=== PATIENT | male | born 1965 | race Caucasian/White ===

== ENCOUNTER 2019-11-25 12:36 | Outpatient (CLI) | payer BC, SELFPAY ==
--- NOTE | 2019-11-25 13:01 | XR_ITS ---
WS: [id number] Right shoulder, 3 views, 11/25/2019 Clinical Data: ROTATOR CUFF SYNDROME, RIGHT SHOULDER PAIN Comparison: None. Findings: No fractures or dislocations are seen. The AC joint is normal. The adjacent right clavicle, right sca pula and ribs are normal. The soft tissues are unremarkable. XR/XR shoulder RT min 2V* [id number] Impression: Negative right shoulder.
== END 2019-11-25 12:37 | disposition home or self-care (01) ==
LOC: RADWPI 12:41
PROVIDERS: Family Provider Electrodiagnostic Medicine; PCP Electrodiagnostic Medicine; Visit Provider Electrodiagnostic Medicine
DX: M75.101 Unspecified rotator cuff tear or rupture of right shoulder, not specified as traumatic (principal); M25.519 Pain in unspecified shoulder
CPT/HCPCS: 73030

== ENCOUNTER 2019-12-01 12:56 | Outpatient (CLI) | payer BC, SELFPAY ==
--- NOTE | 2019-12-01 | XR_ITS ---
WS: [id number] Orbits 2 view. HISTORY: Evaluate for foreign body prior to MRI. COMPARISON: None. No metallic foreign bodies are noted over the orbits or globes. No air-fluid levels in the visualized sinuses or bone destruction. XR/[place] [id number] IMPRESSION: No foreign body over the orbits or globes.
--- NOTE | 2019-12-01 13:13 | MR_ITS ---
WS: [id number] MRI RIGHT SHOULDER HISTORY: RIGHT ADHESIVE Capsulitis; rt ROTATOR CUFF SYNDROME/PAIN COMPARISON: 03/06/2015 TECHNIQUE: Multiplanar sequences of the shoulder joint are submitted. Micrometallic artifacts are noted surrounding the humeral head from prior surgery. Marked arthritis involving the AC joint. Osteophyte and soft tissue encroachment upon the supraspinat us muscle and tendon. Small amount of fluid in the subacromial and subdeltoid bursa. There is a small amount of fluid in the axillary pouch and surrounding the humeral head and extending along the bicep s tendon sheath. Marked thickening and abnormal signal in the subscapularis tendon. Suspicious for at least a partial tear in the subscapularis tendon distal to the coracohumeral interval. There is moderate narrowing of the coracohumeral interval with distortion of the subscapularis tendon. There is marked thickening o f the distal subscapularis tendon. There is additional increased T2 signal at the insertion site of t he supraspinatus tendon. No retraction of the tendon. Intrasubstance degeneration in the anterior superior labrum. No definite tear is identified. There is increase fluid along the biceps tendon sheath and increased signal in the biceps tendon sheath. Part ial tear of the biceps tendon. MR/MR shoulder RT wo con* [id number] IMPRESSION: 1. Significant progression of degenerative changes at the glenohumeral joint a nd AC joint since 03/06/2015. 2. Marked AC joint arthritis with encroachment upon the supraspinatus tendon a nd muscle. 3. Abnormal signal in the distal subscapularis tendon. High-grade tear suspect ed distal to the coracohumeral interval. Marked narrowing of the coracohumeral interval ligament with impingement. 4. Partial split tear in the biceps tendon along with tenosynovitis. 5. Fraying along the articular surfaces of the supraspinatus and infraspinatus tendons. No definite tear is identified.
== END 2019-12-01 12:57 | disposition home or self-care (01) ==
LOC: RADSHAW 13:00
PROVIDERS: Family Provider Electrodiagnostic Medicine; PCP Electrodiagnostic Medicine; Visit Provider Electrodiagnostic Medicine
DX: Z01.818 Encounter for other preprocedural examination (principal); S46.911A Strain of unspecified muscle, fascia and tendon at shoulder and upper arm level, right arm, initial encounter; X58.XXXA Exposure to other specified factors, initial encounter
CPT/HCPCS: 70030; 73221

== ENCOUNTER 2022-04-11 11:30 | Emergency (ER) | payer OTHER, SELFPAY ==
[2022-04-11 11:46] VITALS: BP 162/110; PULSE 75; RESP 16; TEMP 37.1; O2SAT 97
--- NOTE | 2022-04-11 12:00 | W.ED.EXTPRO ---
HPI - Extremity Problem General: Chief complaint: Extremity Problem,Nontraumatic Stated complaint: swelling to R wrist Time Seen by Provider: 04/11/22 11:53 History of Present Illness: Patient is a 56-year-old male who comes to the ED with swallowing mass on right wrist. Patient noticed approximately 2 to 3 weeks ago. The mass has continued to get larger. Denies any injury or trauma to cause swelling mass in right wrist. The mass is nontender does not cause him any pain or discomfort. He still has full range of motion in right wrist. Denies any chest pain, shortness of breath, fevers, chills, nausea/vomiting, abdominal pain, bladder or bowel symptoms. Associated symptoms: Deny chest pain, fever(s) or rash Review of Systems Const: Denies: fever(s), chills or fatigue Eyes: Denies: change in vision or eye discomfort ENMT: Denies: throat pain, odynophagia, nasal discharge or nasal congestion Card: Denies: chest pain, palpitations, edema, swelling of feet/ankles, dyspnea on exertion or orthopnea Resp: Denies: dyspnea, productive cough or non-productive cough GI: Denies: abdominal pain, nausea, vomiting, diarrhea, constipation or hematochezia : Denies: flank pain, difficulty urinating, dysuria or hematuria Musc: Reports: other (Localized swelling mass on right wrist.); Denies: neck pain, back pain or extremity swelling Skin/Breast: Denies: rash or new lesions Neuro: Denies: headache(s), numbness in extremities or weakness in extremities [facility] ED PFSH: Medical History No pertinent family history Surgical History No pertinent past surgical history Physical Exam Const: COMMON NORMALS: no acute distress, patient oriented x3, healthy appearing and alert GENERAL APPEARANCE: cooperative and comfortable HENMT: COMMON NORMALS: normocephalic HEAD & SCALP: normocephalic MOUTH: Normal oral and palatal mucosa present THROAT: posterior oropharynx normal and uvula midline Neck/C-Spine: COMMON NORMALS: supple GENERAL: Yes normal visual inspection Resp: COMMON NORMALS: normal respiratory effort, No retractions, No use of accessory muscles and clear to auscultation bilaterally AUSCULTATION: clear to auscultation bilaterally Cardio: COMMON NORMALS: regular rate, regular rhythm, S1 normal heart sound present, S2 normal heart sound present, No gallops present (Cardio), No clicks present (Cardio), No murmurs present (Cardio) and Peripheral pulses 2+ throughout RATE: regular rate RHYTHM: regular rhythm HEART SOUNDS: S1 normal heart sound present and S2 normal heart sound present PERIPHERAL PULSES: Peripheral pulses 2+ throughout GI: COMMON NORMALS: Normal to inspection, nondistended, normoactive bowel sounds present, Soft to palpation, non-tender and no masses PALPATION: Yes Soft to palpation : COMMON NORMALS: Yes no CVA tenderness BLADDER/KIDNEY EXAM: Yes no CVA tenderness Back/Pelvis: COMMON NORMALS: no CVA tenderness Extremity: NARRATIVE EXTREMITY EXAM: Right wrist?patient has palpable firm nodule on the volar aspect of wrist. Nontender to palpation and approximately 1.5 cm in diameter. No erythema or warmth noted. Neuro: COMMON NORMALS: patient oriented x3 and moves all extremities SENSORIUM/ORIENTATION: Yes alert Skin: GENERAL SKIN EXAM: dry skin Course Vital Signs: Vital signs: Vital Signs Temperature 98.8 F 04/11/22 11:46 Pulse Rate 75 04/11/22 11:46 Respiratory Rate 16 04/11/22 11:46 Blood Pressure 162/110 04/11/22 11:46 Pulse Oximetry 97 04/11/22 11:46 MDM - Extremity (Nontraumatic) Medical Decision Making Patient is a 56-year-old male who comes to the ED with swallowing mass on right wrist. Patient noticed approximately 2 to 3 weeks ago. The mass has continued to get larger. Denies any injury or trauma to cause swelling mass in right wrist. The mass is nontender does not cause him any pain or discomfort. He still has full range of motion in right wrist. Patient's PCP sent him here to the ED to get an ultrasound done. Right wrist?patient has palpable firm nodule on the volar aspect of wrist. Nontender to palpation and approximately 1.5 cm in diameter. No erythema or warmth noted. Vitals are stable. Ultrasound venous duplex of right upper extremity showed no blood clots or DVTs. Soft tissue ultrasound of right arm showed a large likely ganglion cyst on the lateral right wrist. I placed an order with case management for patient to be referred to Ortho for follow-up of the large ganglion cyst. He was stable for discharge home. Return ED precautions given. Patient understood agree with plan. Lab Data Radiology Impressions Soft Tissue Ultrasound 04/11/22 12:02 IMPRESSION: Large cystic mass along the lateral RIGHT wrist. Favor this is probably a ganglion. Evaluation by orthopedics recommended. Discharge Plan Discharge Patient Disposition: Home Clinical Impression: Ganglion cyst of volar aspect of right wrist Condition: Stable Discharge Orders: Discharge ED (Routine); Ordered 04/11/22 Ordered By: Naman Aponte Referrals: Darin Guzman, [Primary Care Provider] - Discharge Diet: Regular Discharge Activity: Resume usual activity Patient Instructions: Ganglion Cyst (ED) Activity Restrictions/Additional Instructions: Follow-up with medical provider as directed. Case management should be contacting you in the next several days set up an appoint with Ortho for follow-up. Return to the ER or your medical provider if condition worsens. Please read and understand discharge instructions. Thank you for choosing [facility] for your healthcare needs today. Please realize this is an emergency room and that we are providing you with a medical screening exam and this may not be complete and all inclusive of all the testing and or work up that you may need to determine your ailment or severity of your illness. It is very important that you follow up as instructed or that you return to the Emergency Department should you have concerns or if your condition changes or worsens in any way. Coding Level of Care Code ED [employer] for Flo Patel Exam Comprehensive
--- NOTE | 2022-04-11 12:02 | USCV_ITS ---
Jose Reyes Age: 56 Gender: M : 1965 Exam Date: 04/11/2022 12:18 Ordering Phys: Naman Aponte Technologist: ILAN Exam Location: [facility] [place]_ Indication: RUE SWELLING HISTORY: Upper extremity swelling. PROCEDURES: Venous duplex imaging was performed in only the Right upper extremity. The following venous structures were evaluated: internal jugular vein, subclavian vein, axillary vein, and brachial veins. In addition, the basilic vein, cephalic vein, radial vein, and ulnar vein. Serial compression, augmentation maneuvers, and spectral Doppler flow evaluation were performed. FINDINGS: The right upper extremity was evaluated with duplex Doppler ultrasound for this exam. No evidence of deep vein thrombosis or superficial thrombophlebitis in the right upper extremity. The veins of the right upper extremity are readily compressible with normal venous flow dynamics including spontaneous flow, respiratory phasic variation and augmentation. CONCLUSIONS No evidence of thrombus of the right upper extremity veins. Mohsen Islas MD (Electronically Signed) Final Date: 11 April 2022 17:11 S
--- NOTE | 2022-04-11 12:02 | US_ITS ---
WS: [id number] ULTRASOUND SOFT TISSUES RIGHT wrist. HISTORY: swelling mass on right wrist COMPARISON: None available. TECHNIQUE: 2-D and color Doppler imaging is submitted. Mildly complex cystic mass along the lateral RIGHT wrist extending to the base of the thumb. This mas s measures 3.7 cm in length x 1.8 x 1.0 cm. This is closely associated with the radial artery. There is no increased vascularity within this cystic mass. US/US soft tissue/extremity [id number] IMPRESSION: Large cystic mass along the lateral RIGHT wrist. Favor this is probably a gangl ion. Evaluation by orthopedics recommended.
--- NOTE | 2022-04-11 13:57 | PC.SOCIAL ---
Addendum entered by Hui Mnasfield 05/03/22 16:42: Patient had a follow up appointment scheduled for 04.15.22 with Ramón Reis at ortho - patient did attend appointment. Original Note: Ortho Referral Message sent to ortho requesting follow up appointment; office to contact patient with appointment date and time.
== END 2022-04-11 13:34 | disposition home or self-care (01) ==
PROVIDERS: Emergency Provider Physician Assistant; PCP Electrodiagnostic Medicine
DX: M67.431 Ganglion, right wrist (principal)
CPT/HCPCS: 76882; 93971; 99283

== ENCOUNTER → 2022-04-15 09:32 | Outpatient (BNVA) | payer OTHER, SELFPAY | PROVIDERS: PCP Electrodiagnostic Medicine; Referring Provider Physician Assistant; Visit Provider Nurse Practitioner Family | DX: M67.431 Ganglion, right wrist (principal) | CPT/HCPCS: 73110 ==

== ENCOUNTER 2022-04-25 06:32 | Day surgery (SDC) | payer OTHER, SELFPAY ==
[2022-04-24 12:38] VITALS: BMI 28.7
[2022-04-25] VITALS (13 sets, daily range): BP systolic 136–162; BP diastolic 95–110; PULSE 74–102; RESP 12–21; TEMP 36.2–36.5; O2SAT 91–98
--- NOTE | 2022-04-25 07:05 | W.PM.OPSUD ---
Surgery/Procedure H&P Update DATE OF PROCEDURE: April 25, 2022 DATE H&P PERFORMED: 04/15/22 H&P UPDATE INFORMATION: I have reviewed H&P completed within last 30 days PREOP DIAGNOSIS: Ganglion right wrist PLANNED PROCEDURE: Operation Date: 04/25/22 08:00 Proposed Procedures p mass excision right wrist/ [id number],M67.431(Right) - Fernando Flood MD
[2022-04-25] MEDS: sodium chloride 0.9% 1,000 ML 30 ML IV (07:20)
--- NOTE | 2022-04-25 07:25 | ANES.PREANE2 ---
Pre-Anesthetic Assessment Height/Weight: Height 1.83 m Weight 96.162 kg Temp Pulse Resp BP Pulse Ox 97.7 F 74 18 153/101 98 04/25/22 06:42 04/25/22 06:42 04/25/22 06:42 04/25/22 06:42 04/25/22 06:42 Preop Diagnosis: Ganglion right wrist Operation Date: 04/25/22 08:00 Proposed Procedures p mass excision right wrist/ [id number],M67.431(Right) - Fernando Flood MD Familial anesthetic complications: none Was Beta Shantelle taken within 24 hours: N/A Was Clonidine taken within 24 hours: N/A Last intake: Intake Last Liquid Date 04/24/22 Last Liquid Time 21:30 Last Solid Date 04/24/22 Last Solid Time 21:30 Social Alcohol (Daily beer) and No tobacco Exam alert, oriented x 3, clear to auscultation bilaterally and regular rate & rhythm Airway Submandibular: within normal limits Cervical ROM: within normal limits Mallampati: Class II Dentition: full Comments: Comments: [place] History/ROS No significant history except as noted Anesthetic Plan ASA status: 2 Anesthesia: Choice Medications/Allergies Home Medications Medication Instructions Recorded Confirmed Last Taken Type hydrocodone 5 mg-acetaminophen 325 1 tab PO Q4H #15 tab 04/25/22 Unknown Rx mg tablet Allergies Allergy/AdvReac Type Severity Reaction Status Date / Time No Known Allergies Allergy Verified 04/15/22 09:41 Current Medications Generic Name Dose Route Start Last Admin Trade Name Freq PRN Reason Stop Dose Admin Sodium Chloride 1,000 mls @ 30 mls/hr 04/25/22 06:45 04/25/22 07:20 Sodium Chloride 0.9% IV 04/26/22 06:44 30 mls/hr .Q24H JOSELITO Administration PFSH Anesthesia Medical History No pertinent family history Surgical History No pertinent past surgical history Social History Smoking and tobacco status: former smoker Data Anesthesia Cardiac Studies: No Data to Display
--- NOTE | 2022-04-25 07:42 | P.OP_ITS ---
Operative Report Date of procedure: April 25, 2022 Pre-op diagnosis: Preop Diagnosis Ganglion right wrist Post-op diagnosis: same Procedure done: Excision ganglion right wrist Pathology: none sent Surgeon: Fernando Flood Anesthesia: General Estimated blood loss (mL): 20 Tourniquet time (min): 16 Findings: The patient had a ganglion cyst measuring approximately 1.5 x 2 cm over the volar radial wrist. It was adherent to the radial artery and deep capsule Condition: stable Disposition: PACU Procedure: The patient was taken to the operating room and given a general anesthesia. He was prepped and draped in the supine position with his right wrist exposed. A longitudinal incision was made over the palpable mass over the volar radial wrist. Dissection was carried down through the skin and subcutaneous tissue until the ganglion cyst was identified. Utilizing a hemostat and blunt scissors dissection was accomplished medially and laterally. At the proximal extent of the ganglion the radial artery was seen entering and entwined in the volar radial aspect of the mass. The artery was dissected free moved from distal to proximal and the remaining ulnar aspect of the ganglion freed from the capsule. Hemostasis provided with bipolar cautery. Deep tissues were closed with 3-0 Vicryl. The skin was closed with 3-0 Prolene. Sterile compressive dressings were applied. The patient was extubated taken to recovery room in stable condit ion.
[2022-04-25] MEDS: ceFAZolin 2,000 MG in sodium chloride 0.9% (plus) 50 ML 100 MG IV (08:00)
[2022-04-25] MEDS: fentaNYL 50 mcg/mL INJ 2mL IVP (09:19)
[2022-04-25] MEDS: HYDROcodone-acetaminophen 5-325 mg Tablet 1 TAB PO (10:06)
--- NOTE | 2022-04-25 16:36 | ANE.PACU2 ---
Inpatient post-anesthesia follow up: Airway intact: Yes Vital signs: Temperature 97.5 F Pulse Rate 83 Respiratory Rate 18 Blood Pressure 152/110 Pulse Oximetry 97 Oxygen Delivery Me thod Room Air Oxygen Flow Rate Fraction of Inspir ed Oxygen Hydration adequate: Yes Nausea and vomiting: No Pain level: 1 Mental status: Baseline
== END 2022-04-25 10:10 | disposition home or self-care (01) ==
PROVIDERS: PCP Electrodiagnostic Medicine; Visit Provider Orthopaedic Surgery
PROC: (CPT 25111; principal; 2022-04-25 07:50)
DX: M67.431 Ganglion, right wrist (principal); Z87.891 Personal history of nicotine dependence
CPT/HCPCS: 25111; J1100; J2405; J2704; J3010; J3490; J7030

== ENCOUNTER → 2023-01-02 09:16 | Outpatient (BNVA) | payer OTHER, SELFPAY | PROVIDERS: PCP Electrodiagnostic Medicine; Referring Provider Electrodiagnostic Medicine; Visit Provider Student in an Organized Health Care Education/Training Program | DX: M70.61 Trochanteric bursitis, right hip (principal); M70.62 Trochanteric bursitis, left hip | CPT/HCPCS: 73523 ==

== ENCOUNTER 2024-05-09 13:15 | Emergency (ER) | payer OTHER, SELFPAY ==
[2024-05-09 13:17] VITALS: BP 200/122; PULSE 71; TEMP 36.5; O2SAT 96; BMI 30.4
--- NOTE | 2024-05-09 13:20 | CTR_ITS ---
PROCEDURE INFORMATION: Exam: CT Chest Without Contrast; Diagnostic Exam date and time: 05/09/2024 1:40 PM Age: 58 years old Clinical indication: Injury or trauma; Fall; Blunt trauma (contusions or hematomas); Additional info: Traumatic chest pain TECHNIQUE: Imaging protocol: Diagnostic computed tomography of the chest without contrast. Radiation optimization: All CT scans at this facility use at least one of these dose optimization techniques: automated exposure control; mA and/or kV adjustment per patient size (includes targeted exams where dose is matched to clinical indication); or iterative reconstruction. COMPARISON: CR XR chest 1V [id number] 02/13/2018 11:13 PM RADIATION DOSE METRICS: Total DLP (mGy-cm): 510.7 FINDINGS: Thyroid: Punctate calcified left thyroid nodule not reaching size criteria for follow-up. Lungs: Posterior atelectasis versus scarring. Left lower lobe granuloma. Lingular scarring/atelectasis. Pleural spaces: Unremarkable. No pneumothorax. No pleural effusion. Heart: Unremarkable. No cardiomegaly. No pericardial effusion. Lymph nodes: Unremarkable. No enlarged lymph nodes. Vasculature: Single focus of calcified atherosclerotic disease of the distal right subclavian artery. Bones/joints: Lateral fracture of the left 4th rib, minimal displacement. Soft tissues: Unremarkable. CT/CT chest wo con [id number] IMPRESSION: 1. Minimally displaced lateral left 4th rib fracture. 2. No further acute finding. 3. Additional findings as above. COMMENTS: Consistent with the [employer]'s Incidental Findings Committee white paper (J Am Patti Radiol 2015): In patients aged 35 years and older with an incidental thyroid nodule equal to or greater than 1.[address], MRI or extrathyroidal US, further evaluation with dedicated thyroid US is recommended for patients with normal life expectancy and without comorbidities. For smaller nodules without suspicious features, no further evaluation or follow up is recommended.
--- NOTE | 2024-05-09 13:20 | CTR_ITS ---
PROCEDURE INFORMATION: Exam: CT Cervical Spine Without Contrast Exam date and time: 05/09/2024 1:36 PM Age: 58 years old Clinical indication: Injury or trauma; Fall; Blunt trauma; Additional info: Fall, neck pain TECHNIQUE: Imaging protocol: Computed tomography of the cervical spine without contrast. Radiation optimization: All CT scans at this facility use at least one of these dose optimization techniques: automated exposure control; mA and/or kV adjustment per patient size (includes targeted exams where dose is matched to clinical indication); or iterative reconstruction. COMPARISON: CR XR cervical spine 3V* [id number] 03/11/2018 2:51 PM RADIATION DOSE METRICS: Total DLP (mGy-cm): 397 FINDINGS: Bones: Degenerative change of the visualized osseous structures. Ankylosis across the C2-C3 bilateral facet joints. No severe spinal canal stenosis. No severe foraminal stenosis. Lungs: Lung apices are normal. Thyroid: Calcified left thyroid nodule not reaching size criteria for follow-up. Vasculature: Scattered atherosclerotic disease, mild. Soft tissues: Unremarkable. CT/CT cervical spin wo con* [id number] IMPRESSION: 1. No acute findings. 2. Additional findings as above. COMMENTS: Consistent with the [employer]'s Incidental Findings Committee white paper (J Am Patti Radiol 2015): In patients aged 35 years and older with an incidental thyroid nodule equal to or greater than 1.[address], MRI or extrathyroidal US, further evaluation with dedicated thyroid US is recommended for patients with normal life expectancy and without comorbidities. For smaller nodules without suspicious features, no further evaluation or follow up is recommended.
--- NOTE | 2024-05-09 13:21 | CTR_ITS ---
PROCEDURE INFORMATION: Exam: CT Thoracic Spine Without Contrast Exam date and time: 05/09/2024 1:40 PM Age: 58 years old Clinical indication: Injury or trauma; Fall; Blunt trauma (contusions or hematomas); Additional info: Traumatic upper back pain TECHNIQUE: Imaging protocol: Computed tomography of the thoracic spine without contrast. Radiation optimization: All CT scans at this facility use at least one of these dose optimization techniques: automated exposure control; mA and/or kV adjustment per patient size (includes targeted exams where dose is matched to clinical indication); or iterative reconstruction. COMPARISON: CT chest wo con [id number] 05/09/2024 1:40 PM RADIATION DOSE METRICS: Total DLP (mGy-cm): 1020.3 FINDINGS: Bones/joints: Scattered degenerative change. No significant spinal canal narrowing. No significant foraminal narrowing. Soft tissues: Unremarkable. Vasculature: Calcified atherosclerotic disease. Lungs: Left lower lobe granuloma. Scattered atelectasis/scarring. CT/CT thoracic spin wo con* [id number] IMPRESSION: 1. No acute findings. 2. Additional findings as above. 3. Please refer to the concurrently performed CT of the chest for intrathoracic findings and impression.
--- NOTE | 2024-05-09 13:46 | ED_ITS ---
HPI - Back Pain/Injury General: Chief Complaint: Back Pain/Injury Stated Complaint: BACK PAIN S/P FALL Time Seen by Provider: 05/09/24 13:16 History of Present Illness: 58-year-old man who presents emergency r oom by ambulance with neck and back pain. He says he fell out of a window about 4 feet 2 days ago. Said initially he did not think much of it but today went to move and he felt a pop in his neck and since then he says he cannot move his neck at all. Also having pain in his mid thoracic back. No saddle numbness, no urinary retention or incontinence, no focal motor deficit, no sensory deficit. no recent fever. no cough. no shortness of breath. no chest pain. no abdominal pain. no nausea or vomiting. no dysuria. no altered mental status. no edema. Review of Systems Narrative: Constitutional symptoms: Negative except as documented in HPI. Skin symptoms: Negative except as documented in HPI. Eye symptoms: Negative except as documented in HPI. ENMT symptoms: Negative except as documented in HPI. Respiratory symptoms: Negative except as documented in HPI. Cardiovascular symptoms: Negative except as documented in HPI. Gastrointestinal symptoms: Negative except as documented in HPI. Genitourinary symptoms: Negative except as documented in HPI. Musculoskeletal symptoms: Negative except as documented in HPI. Neurologic symptoms: Negative except as documented in HPI. Psychiatric symptoms: Negative except as documented in HPI. Endocrine symptoms: Negative except as documented in HPI. [facility] ED PFSH: Medical History No pertinent family history Surgical History No pertinent past surgical history Social History Smoking and tobacco/nicotine status: former use of tobacco/nicotine Physical Exam Narrative: EXAM NARRATIVE: General: Alert, no acute distress. Skin: Warm, dry. Head: Normocephalic, atraumatic. Neck: Supple, trachea midline. Eye: Extraocular movements are intact. Ears, nose, mouth and throat: mucosa moist. Cardiovascular: Regular, Normal peripheral perfusion. Respiratory: Lungs are clear to auscultation, respirations are non-labored, breath sounds are equal, Symmetrical chest wall expansion. Gastrointestinal: Soft, Nontender, Non distended Musculoskeletal: Normal ROM, no deformity. Neurological: Alert and oriented, No focal neurological deficit observed. Psychiatric: Cooperative, appropriate mood & affect. Course Vital Signs: Vital signs: Vital Signs Temperature 97.7 F 05/09/24 13:17 Pulse Rate 71 05/09/24 13:17 Blood Pressure 200/122 05/09/24 13:17 Pulse Oximetry 96 05/09/24 13:17 Oxygen Delivery Me thod Room Air 05/09/24 13:17 MDM - Back Pain/Injury Medical Decision Making In this patient with left rib pain and neck pain after a trauma CT of the cervical spine, thoracic spine and chest were ordered. Rule out fractures, pneumothorax, pulmonary contusions etc. CT of the cervical spine: No fracture. Good alignment. No step-offs. This was reviewed and interpreted by myself the emergency room physician. I also reviewed the radiologist report. CT of the thoracic spine: No fracture. Good alignment. No step-offs. This was reviewed and interpreted by myself the emergency room physician. CT of the chest without contrast: There is a left fourth nondisplaced rib fracture. No pneumothorax. No pulmonary contusions. No pneumonia. This was reviewed and interpreted by myself the emergency room physician. I also reviewed the radiology report. Reexamination: Patient still with some neck stiffness and limited range of motion of his neck. No focal motor deficits. No weakness in his extremities. No loss of bowel or bladder continence. No altered mental status. No increased work of breathing. Assessment and plan: Rib fracture Cervical sprain ? Incentive spirometry with greater than 1000 cc inhaled prior to discharge. We discussed incentive spirometry and his risk for pneumonia if he does not have deep breaths regularly. ? Healy, IV Toradol and IV Decadron. P.o. Flexeril - Discharged home - Discussed plan with patient. Answered any questions. - Evaluation and treatment of this problem were appropriate in the emergency setting. Labs Radiology Impressions Cervical Spine CT 05/09/24 13:20 IMPRESSION: 1. No acute findings. 2. Additional findings as above. COMMENTS: Consistent with the [employer]'s Incidental Findings Committee white paper (J Am Patti Radiol 2015): In patients aged 35 years and older with an incidental thyroid nodule equal to or greater than 1.[address], MRI or extrathyroidal US, further evaluation with dedicated thyroid US is recommended for patients with normal life expectancy and without comorbidities. For smaller nodules without suspicious features, no further evaluation or follow up is recommended. Chest CT 05/09/24 13:20 IMPRESSION: 1. Minimally displaced lateral left 4th rib fracture. 2. No further acute finding. 3. Additional findings as above. COMMENTS: Consistent with the [employer]'s Incidental Findings Committee white paper (J Am Patti Radiol 2015): In patients aged 35 years and older with an incidental thyroid nodule equal to or greater than 1.[address], MRI or extrathyroidal US, further evaluation with dedicated thyroid US is recommended for patients with normal life expectancy and without comorbidities. For smaller nodules without suspicious features, no further evaluation or follow up is recommended. Thoracic Spine CT 05/09/24 13:21 IMPRESSION: 1. No acute findings. 2. Additional findings as above. 3. Please refer to the concurrently performed CT of the chest for intrathoracic findings and impression. All radiology interpretation(s) finalized by discharge Discharge Plan Discharge Patient Disposition: Home Clinical Impression: Fractured rib, Cervical strain Condition: Stable Prescriptions: New cyclobenzaprine 10 mg tablet 10 mg PO Q8H Qty: 20 0RF hydrocodone-acetaminophen 5-325 mg tablet 1 tab PO Q6H PRN (Reason: pain) Qty: 20 0RF dexamethasone 6 mg tablet 6 mg PO DAILY 5 Days Qty: 5 0RF diclofenac sodium 50 mg tablet,delayed release (DR/EC) 50 mg PO Q12H Qty: 20 0RF Miralax 17 gram/dose powder 17 g PO DAILY Qty: 510 0RF Rx Instructions: Take 1 scoop daily while taking pain medications. No Action meloxicam 7.5 mg tablet 7.5 mg PO DAILY Discharge Orders: Discharge ED (Routine); Ordered 05/09/24 Ordered By: Elisa Saleh Referrals: Darin Guzman DO [Primary Care Provider] - Discharge Diet: Usual diet Discharge Activity: Increase activity as tolerated Patient Instructions: Cervical Strain (ED), Rib Fracture (ED) Activity Restrictions/Additional Instructions: Thank you for choosing [facility] for your healthcare needs today. Please realize this is an emergency room and that we are providing you with a medical screening exam and this may not be complete and all inclusive of all the testing and or work up that you may need to determine your ailment or severity of your illness. You have been screened and evaluated and felt safe for discharge. Health conditions do change or evolve sometimes and as such it is important that you follow up with your Primary Doctor to be re checked, 3-5 days is a general good time frame for follow up. You are always welcome to return to the ED for re assessment if your symptoms are worsening or you have new concerns Coding Level of Care Code ED Engine Emission Technician for Flo Patel
[2024-05-09] MEDS: cyclobenzaprine 10 mg Tablet PO (14:20)
[2024-05-09] MEDS: dexamethasone 10 mg/mL INJ IVP (14:20)
[2024-05-09] MEDS: ketorolac 30 mg/mL INJ IVP (14:21)
[2024-05-09] MEDS: HYDROcodone-acetaminophen 10-325 mg Tablet 1 TAB PO (15:23)
== END 2024-05-09 15:55 | disposition home or self-care (01) ==
PROVIDERS: Emergency Provider Emergency Medicine; PCP Electrodiagnostic Medicine
DX: S16.1XXA Strain of muscle, fascia and tendon at neck level, initial encounter (principal); S22.32XA Fracture of one rib, left side, initial encounter for closed fracture; Z87.891 Personal history of nicotine dependence; W13.4XXA Fall from, out of or through window, initial encounter
CPT/HCPCS: 71250; 72125; 72128; 96374; 96375; 99285; J1100; J1885

== ENCOUNTER 2024-06-29 17:28 | Emergency (ER) | payer OTHER, SELFPAY ==
[2024-06-29] VITALS (7 sets, daily range): BP systolic 131–184; BP diastolic 83–115; PULSE 72–82; RESP 18; O2SAT 91–97; BMI 29.8
--- NOTE | 2024-06-29 17:40 | CTR_ITS ---
PROCEDURE INFORMATION: Exam: CT Cervical Spine Without Contrast Exam date and time: 06/29/2024 6:26 PM Age: 59 years old Clinical indication: Injury or trauma; Fall; Other: Pain; Additional info: Fall/pain TECHNIQUE: Imaging protocol: Computed tomography of the cervical spine without contrast. Radiation optimization: All CT scans at this facility use at least one of these dose optimization techniques: automated exposure control; mA and/or kV adjustment per patient size (includes targeted exams where dose is matched to clinical indication); or iterative reconstruction. COMPARISON: CT cervical spin wo con* [id number] 05/09/2024 1:36 PM RADIATION DOSE METRICS: Total DLP (mGy-cm): 1001 FINDINGS: Bones/joints: Chronic deformity of the C2 vertebral body with ankylosis of C2-C3, which may be developmental and/or sequela of remote trauma. There is degeneration of the atlantoaxial articulation, [id number]. No evidence of acute fracture or subluxation of the cervical spine. The craniocervical junction including the atlantoaxial and atlantooccipital articulations are otherwise intact. C2-C3: Mild bilateral foraminal stenosis. No central stenosis. C3-C4: Mild left-sided foraminal stenosis. No central stenosis. C4-C5: Mild left-sided foraminal stenosis. No central stenosis. C5-C6: Uncovertebral hypertrophy and facet arthrosis results in severe left-sided and mild right-sided foraminal stenosis. No central stenosis. C6-C7: Uncovertebral hypertrophy and facet arthrosis results in moderate-severe left-sided foraminal stenosis. Mild central stenosis. C7-T1: No central or foraminal stenosis. Lungs: The visualized lung apices are clear. Soft tissues: No gross soft tissue abnormality. No significant prevertebral edema. No evidence of fluid collection or hematoma. CT/CT cervical spin wo con* [id number] IMPRESSION: 1. No evidence of fracture or subluxation of the cervical spine.
--- NOTE | 2024-06-29 17:40 | CTR_ITS ---
PROCEDURE INFORMATION: Exam: CT Head Without Contrast Exam date and time: 06/29/2024 6:26 PM Age: 59 years old Clinical indication: Injury or trauma; Fall; Other: Pain; Additional info: Fall/pain TECHNIQUE: Imaging protocol: Computed tomography of the head without contrast. Radiation optimization: All CT scans at this facility use at least one of these dose optimization techniques: automated exposure control; mA and/or kV adjustment per patient size (includes targeted exams where dose is matched to clinical indication); or iterative reconstruction. COMPARISON: CT head wo con* [id number] 02/13/2018 11:55 PM RADIATION DOSE METRICS: Total DLP (mGy-cm): 1321 FINDINGS: Brain: No evidence of intra-axial or extra-axial hemorrhage. No mass effect or midline shift. Martin-white differentiation is maintained. Basilar cisterns are patent. Cerebral ventricles: No hydrocephalus. Paranasal sinuses: The visualized paranasal sinuses are well aerated. Mastoid air cells: Small bilateral mastoid effusions. Bones: Calvarium is intact. No evidence of acute fracture. Soft tissues: Age-indeterminate depression in the right frontal scalp. Otherwise no gross soft tissue abnormality. CT/CT head wo con* [id number] IMPRESSION: 1. No acute intracranial abnormality.
--- NOTE | 2024-06-29 17:40 | CTR_ITS ---
PROCEDURE INFORMATION: Exam: CT Thoracic Spine Without Contrast Exam date and time: 06/29/2024 6:30 PM Age: 59 years old Clinical indication: Injury or trauma; Fall; Other: Pain; Additional info: Fall/pain TECHNIQUE: Imaging protocol: Computed tomography of the thoracic spine without contrast. Radiation optimization: All CT scans at this facility use at least one of these dose optimization techniques: automated exposure control; mA and/or kV adjustment per patient size (includes targeted exams where dose is matched to clinical indication); or iterative reconstruction. COMPARISON: CT thoracic spin wo con* [id number] 05/09/2024 1:40 PM RADIATION DOSE METRICS: Total DLP (mGy-cm): 1225 FINDINGS: Bones/joints: No evidence of fracture or subluxation. No evidence of thecal sac stenosis. No evidence of aggressive osseous lesion. Soft tissues: Paraspinal soft tissues are unremarkable. Lungs: Subsegmental dependent atelectasis in both lungs. CT/CT thoracic spin wo con* [id number] IMPRESSION: 1. No evidence of fracture or subluxation of the thoracic spine.
--- NOTE | 2024-06-29 17:40 | CTR_ITS ---
PROCEDURE INFORMATION: Exam: CT Lumbar Spine Without Contrast Exam date and time: 06/29/2024 6:36 PM Age: 59 years old Clinical indication: Injury or trauma; Fall; Blunt trauma (contusions or hematomas); Prior surgery; Surgery date: 6+ months; Surgery type: L. Spine; Additional info: Fall/pain TECHNIQUE: Imaging protocol: Computed tomography of the lumbar spine without contrast. Radiation optimization: All CT scans at this facility use at least one of these dose optimization techniques: automated exposure control; mA and/or kV adjustment per patient size (includes targeted exams where dose is matched to clinical indication); or iterative reconstruction. COMPARISON: CT thoracic spin wo con* [id number] 06/29/2024 6:30 PM RADIATION DOSE METRICS: Total DLP (mGy-cm): 938 FINDINGS: Bones/joints: Acute minimally displaced fracture of the L2 vertebral body involving the superior endplate with 1-2 mm cortical step-off (image 31 of series 4 and images 43 and 52 of series 8). There is very mild associated anterior wedging. Posterior elements are intact. L5-S1 posterior instrumented fusion without evidence of acute hardware complication. Vertebral alignments are maintained. L1-L2: Mild disc bulge results in mild bilateral foraminal stenosis and mild central stenosis. L2-L3: Mild disc bulge and mild facet arthrosis results in mild bilateral foraminal stenosis. No central stenosis. L3-L4: Mild disc bulge and mild facet arthrosis results in mild-moderate bilateral foraminal stenosis and mild central stenosis. L4-L5: Disc bulge and moderate-severe facet arthrosis results in moderate bilateral foraminal stenosis, left worse than right with contacting of the exiting left L4 nerve root. Posterior decompression noted. L5-S1: Fusion/posterior decompression level. Mild bilateral foraminal stenosis. No central stenosis. Soft tissues: The paraspinal soft tissues are grossly unremarkable. No evidence of acute abnormality in the visualized retroperitoneal soft tissues. No evidence of fluid collection hematoma. CT/CT lumbar spine wo con* [id number] IMPRESSION: 1. Acute minimally displaced fracture of the L2 vertebral body involving the superior endplate with mild anterior wedging.
--- NOTE | 2024-06-29 17:42 | ED_ITS ---
HPI - Fall General: Chief Complaint: Back Pain/Injury Stated Complaint: Fall from trailer Time Seen by Provider: 06/29/24 17:29 Source: patient Mode of arrival: EMS Limitations: no limitations History of Present Illness: Patient is a 59-year-old male presenting to the emergency department by ambulance due to a fall prior to arrival. He states that he fell off a trailer while loading hay, approximately 7 feet. With the fall he states he first bumped his head on the metal wall of his shed, and slid down like a reverse Spider-Man move. At this time he is reporting low back pain significantly wo rsened with extension of the legs of both hips. He did arrive in a c-collar though states he has no idea why he was placed in this and that he is not having any neck pain. With hitting his head, states that he did not lose consciousness and is not having any neurological dysfunction at this time. He states he is on a blood thinner but is unable to state what kind. He does appear to be in quite a bit of pain and upon straightening his leg starts to have spasming in his low back. He is not reporting any bowel or bladder incontinence or distal numbness/weakness/paresthesias. Is requesting something for pain at this time. MD complaint: fall Onset (ago): minute(s) Fall from: from height (distance) (7 feet) Fall witnessed: yes, by bystander Place fall occurred: other (Outdoors) Loss of consciousness: None Prolonged down time: no Symptoms prior to fall: none Context: tripped/slipped Location of injury: back Severity scale (1-10): 10 Associated symptoms-after fall: Denies abdominal pain, chest pain, headache(s), lightheadedness or neck pain Related Data Home Medications Medication Instructions Recorded Confirmed meloxicam 7.5 mg tablet 7.5 mg PO DAILY 01/02/23 06/10/24 Previous Rx's Medication Instructions Recorded cyclobenzaprine 10 mg tablet 10 mg PO Q8H #20 tabs 05/09/24 diclofenac sodium 50 mg 50 mg PO Q12H #20 tabs 05/09/24 tablet,delayed release hydrocodone 5 mg-acetaminophen 325 1 tab PO Q6H PRN pain #20 tabs 05/09/24 mg tablet polyethylene glycol 3350 17 17 g PO DAILY #510 grams 05/09/24 gram/dose oral powder (Miralax) hydrocodone 7.5 mg-acetaminophen 1 tab PO Q8H PRN pain #20 tabs 06/29/24 325 mg tablet methocarbamol 750 mg tablet 750 mg PO Q8H 5 days #15 tabs 06/29/24 Allergies Allergy/AdvReac Type Severity Reaction Status Date / Time No Known Allergies Allergy Verified 06/10/24 09:05 Review of Systems General: Reports: 10 or more systems reviewed and unremarkable except in HPI and below Const: Reports: other (fall); Denies: fever(s), chills or fatigue Eyes: Denies: change in vision ENMT: Denies: throat pain, ear or mastoid pain or nasal discharge Card: Denies: chest pain, palpitations, swelling of feet/ankles or lightheadedness Resp: Denies: dyspnea, productive cough or wheezing GI: Denies: abdominal pain, nausea, vomiting, diarrhea or constipation : Denies: flank pain, difficulty urinating, dysuria or urinary frequency Musc: Reports: back pain; Denies: neck pain or joint pain Skin/Breast: Denies: rash Neuro: Denies: headache(s), numbness in extremities or weakness in extremities PFSH ED PFSH: Medical History No pertinent family history Surgical History No pertinent past surgical history Social History Smoking and tobacco/nicotine status: former use of tobacco/nicotine Physical Exam Const: COMMON NORMALS: patient oriented x3 and no limitations GENERAL APPEARANCE: cooperative, well developed and in distress (from back pain) ORIENTATION/CONSCIOUSNESS: Yes awake, Yes oriented to person, Yes oriented to place and Yes oriented to time HENMT: COMMON NORMALS: normocephalic, atraumatic, hearing grossly normal bilaterally and external ears normal HEAD & SCALP: normal to inspection, normocephalic and atraumatic; no Casarez's sign, no laceration and no raccoon eyes EXTERNAL EAR: Yes external ears normal Eye: COMMON NORMALS: Equal, round and reactive pupils present, EOMs intact bilaterally and conjunctivae normal CONJUNCTIVA: Yes conjunctivae normal PUPIL: Yes Equal, round and reactive pupils present Neck/C-Spine: COMMON NORMALS: full ROM, supple and no JVD GENERAL: Yes normal visual inspection CERVICAL SPINE: Yes cervical ROM normal Chest: COMMONS NORMALS: normal inspection of the chest and normal palpation of entire chest wall Resp: COMMON NORMALS: normal respiratory effort, No retractions, No use of accessory muscles and clear to auscultation bilaterally AUSCULTATION: clear to auscultation bilaterally Cardio: COMMON NORMALS: no JVD, regular rate, regular rhythm, No clicks present (Cardio), No murmurs present (Cardio) and No rub (Cardio) RATE: regular rate RHYTHM: regular rhythm GI: COMMON NORMALS: Normal to inspection, nondistended, normoactive bowel sounds present, Soft to palpation and non-tender AUSCULTATION: Yes normoactive bowel sounds PALPATION: Yes Soft to palpation RECTAL EXAM: Yes deferred : COMMON NORMALS: Yes no CVA tenderness BLADDER/KIDNEY EXAM: Yes no CVA tenderness Back/Pelvis: COMMON NORMALS: no CVA tenderness and thoracic and lumbar spine normal to inspection OTHER: Pain with any range of motion of the lumbar back. Examination of the low back difficult due to patient's pain and inability to roll on his side. Does seem to have quite a bit of tenderness to palpation of this lumbar region however no open wounds or step-off deformity of the spine Extremity: COMMON NORMALS: normal to inspection, full ROM and capillary refill normal NARRATIVE EXTREMITY EXAM: Straightening of both legs at the hip causes significant increase in back pain Neuro: COMMON NORMALS: patient oriented x3, CN's II-XII intact bilaterally, moves all extremities, no focal motor deficits and no sensory deficits noted SENSORIUM/ORIENTATION: Yes oriented to person, Yes oriented to place and Yes oriented to time Psych: COMMON NORMALS: mental status grossly normal and Normal thought process present THOUGHT PROCESS: Normal thought process present Skin: COMMON NORMALS: no rashes or lesions noted GENERAL SKIN EXAM: no rashes or lesions noted Course Vital Signs: Vital signs: Vital Signs Pulse Rate 72 06/29/24 22:30 Respiratory Rate 18 06/29/24 22:15 Blood Pressure 131/83 06/29/24 22:30 Pulse Oximetry 92 06/29/24 22:30 Oxygen Delivery Me thod Room Air 06/29/24 22:14 MDM - Fall Medical Decision Making Patient brought in by ambulance after a fall off of a trailer, approximately 7 feet. States he landed on his buttock region and noted severe pain to the low back. History of fusion surgery. Initially was given Hugo along with muscle relaxer. CT head neck and thoracic spine were negative. However CT lumbar spine did not show any acute minimally displaced fracture of L2. Patient was given morphine as he was still reporting pain, did note the most improvement from this. However prior to discharge and informing patient that he is to follow-up with orthopedics as arranged, he states he does not think he can go home due to the pain. We did try another dose of Hugo and we will also send hydrocodone prescription to pharmacy. After some time he is still complaining of pain, however 1 more shot of morphine states that he was feeling better and can ambulate enough to get home. Proper return precautions were given and he is ready for discharge as he states his pain was well enough. He will follow-up [facility] orthopedic spine as discussed and reasons to return were discussed. Lab Data Radiology Impressions Cervical Spine CT 06/29/24 17:40 IMPRESSION: 1. No evidence of fracture or subluxation of the cervical spine. Head CT 06/29/24 17:40 IMPRESSION: 1. No acute intracranial abnormality. Lumbar Spine CT 06/29/24 17:40 IMPRESSION: 1. Acute minimally displaced fracture of the L2 vertebral body involving the superior endplate with mild anterior wedging. Thoracic Spine CT 06/29/24 17:40 IMPRESSION: 1. No evidence of fracture or subluxation of the thoracic spine. All radiology interpretation(s) finalized by discharge Discharge Plan Discharge Patient Disposition: Home Clinical Impression: Closed L2 vertebral fracture Qualifiers: Encounter type: initial encounter Fracture morphology: wedge compression Qualified Code(s): S32.020A - Wedge compression fracture of second lumbar astrid tebra, initial encounter for closed fracture Condition: Stable Prescriptions: New hydrocodone-acetaminophen 7.5-325 mg tablet 1 tab PO Q8H PRN (Reason: pain) Qty: 20 0RF methocarbamol 750 mg tablet 750 mg PO Q8H 5 Days Qty: 15 0RF No Action meloxicam 7.5 mg tablet 7.5 mg PO DAILY cyclobenzaprine 10 mg tablet 10 mg PO Q8H Qty: 20 0RF hydrocodone-acetaminophen 5-325 mg tablet 1 tab PO Q6H PRN (Reason: pain) Qty: 20 0RF diclofenac sodium 50 mg tablet,delayed release (DR/EC) 50 mg PO Q12H Qty: 20 0RF Miralax 17 gram/dose powder 17 g PO DAILY Qty: 510 0RF Rx Instructions: Take 1 scoop daily while taking pain medications. Discharge Orders: Discharge ED (Routine); Ordered 06/29/24 Ordered By: Jose Alvarez Referrals: Darin Guzman DO [Primary Care Provider] - Discharge Diet: Usual diet Discharge Activity: Limit activity as instructed Patient Instructions: Vertebral Compression Fracture (ED) Activity Restrictions/Additional Instructions: Follow-up with orthopedic spine surgery as discussed. Take pain medication as prescribed. Avoid any excessive lifting, bending, or other strenuous activity. Return with any new or worsening of symptoms. Coding Level of Care Code ED Apprentice Painter Neckties for Flo Patel
[2024-06-29] MEDS: orphenadrine 30 mg/mL Inj 2 mL 60 MG IM (17:51)
[2024-06-29] MEDS: HYDROcodone-acetaminophen 7.5-325 mg Tablet 1 TAB PO (17:52)
[2024-06-29] MEDS: morphine 4 mg/mL SDV 1 mL IM ×2 (18:58→22:15)
[2024-06-29] MEDS: HYDROcodone-acetaminophen 7.5-325 mg Tablet 2 TAB PO (21:10)
--- NOTE | 2024-06-29 21:12 | PC.NURSE ---
pt and pt family requesting to talk to provider d/t pain and questions. pt not wanting to leave at this time even though upon dc.
--- NOTE | 2024-06-30 09:24 | DCPLANNER ---
Message sent to Ortho/spine for follow up - closed L2 vertebral fracture
== END 2024-06-29 22:32 | disposition home or self-care (01) ==
PROVIDERS: Emergency Provider Physician Assistant; PCP Electrodiagnostic Medicine
DX: S32.020A Wedge compression fracture of second lumbar vertebra, initial encounter for closed fracture (principal); Z87.891 Personal history of nicotine dependence; W17.89XA Other fall from one level to another, initial encounter
CPT/HCPCS: 70450; 72125; 72128; 72131; 96372; 99284; J2270; J2360

== ENCOUNTER → 2024-07-06 15:28 | Outpatient (BNVA) | payer OTHER, SELFPAY | PROVIDERS: PCP Electrodiagnostic Medicine; Visit Provider Orthopaedic Surgery | DX: S32.020A Wedge compression fracture of second lumbar vertebra, initial encounter for closed fracture (principal); R10.2 Pelvic and perineal pain; X58.XXXA Exposure to other specified factors, initial encounter | CPT/HCPCS: 72110; 72170 ==

== ENCOUNTER → 2024-07-22 15:37 | Outpatient (BNVA) | payer OTHER, SELFPAY | PROVIDERS: PCP Electrodiagnostic Medicine; Visit Provider Orthopaedic Surgery | DX: S32.020A Wedge compression fracture of second lumbar vertebra, initial encounter for closed fracture (principal); X58.XXXA Exposure to other specified factors, initial encounter | CPT/HCPCS: 72100 ==

== ENCOUNTER 2025-01-18 19:37 | Emergency (ER) | payer OTHER, SELFPAY ==
[2025-01-18 19:52] VITALS: BP 191/116; PULSE 68; RESP 16; TEMP 36.7; O2SAT 95; BMI 30.2
--- NOTE | 2025-01-18 20:10 | W.ED.WOUNDLC ---
HPI - Wound/Laceration General: Chief Complaint: Wound/Laceration Stated Complaint: head lac, dropped lumber Time Seen by Provider: 01/18/25 20:01 Source: patient Mode of arrival: ambulatory Limitations: no limitations History of Present Illness: 59-year-old male who states that he is working on a roof had a 2 x 4 slipped and hit him in the head has a 6 cm laceration to right parietal region of his head. He denies any loss of consciousness he said no vomiting is happened roughly over an hour ago. He has a mild headache he rates 2 out of 10 denies any other injuries Associated symptoms: Denies chills, fever(s), nausea or vomiting Related Data Home Medications ?Medication ?Instructions ?Recorded ?Confirmed meloxicam 7.5 mg tablet 7.5 mg PO DAILY 01/02/23 07/22/24 Previous Rx's ?Medication ?Instructions ?Recorded cyclobenzaprine 10 mg tablet 10 mg PO Q8H #20 tabs 05/09/24 diclofenac sodium 50 mg 50 mg PO Q12H #20 tabs 05/09/24 tablet,delayed release hydrocodone 5 mg-acetaminophen 325 1 tab PO Q6H PRN pain #20 tabs 05/09/24 mg tablet polyethylene glycol 3350 17 17 g PO DAILY #510 grams 05/09/24 gram/dose oral powder (Miralax) methocarbamol 500 mg tablet 500 mg PO TID 14 days #42 tabs 07/06/24 prednisone 20 mg tablet 20 mg PO DAILY #15 tabs 07/06/24 hydrocodone 7.5 mg-acetaminophen 1 tab PO Q8H PRN pain 7 days #20 07/15/24 325 mg tablet tabs prednisone 20 mg tablet 20 mg PO DAILY pain #15 tabs 07/22/24 Allergies Allergy/AdvReac Type Severity Reaction Status Date / Time No Known Allergies Allergy Verified 07/22/24 15:31 Review of Systems Const: Denies: fever(s), chills, body aches or change in appetite Eyes: Denies: blurry vision or eye discomfort ENMT: Denies: throat pain or dental pain Card: Denies: chest pain Resp: Denies: dyspnea GI: Denies: abdominal pain, nausea, vomiting or diarrhea Musc: Denies: neck pain or back pain Skin/Breast: Denies: rash Neuro: Reports: headache(s) PFSH ED PFSH: Medical History No pertinent family history Surgical History No pertinent past surgical history Social History Smoking and tobacco/nicotine status: never used tobacco/nicotine Physical Exam Const: COMMON NORMALS: no acute distress, patient oriented x3 and healthy appearing HENMT: COMMON NORMALS: normocephalic HEAD & SCALP: normocephalic OTHER: 6 cm laceration of right side of the head Eye: COMMON NORMALS: Equal, round and reactive pupils present and EOMs intact bilaterally PUPIL: Yes Equal, round and reactive pupils present Neck/C-Spine: COMMON NORMALS: full ROM and supple CERVICAL SPINE: Yes cervical ROM normal and No Cervical spine tenderness Chest: COMMONS NORMALS: normal inspection of the chest Resp: COMMON NORMALS: normal respiratory effort Cardio: COMMON NORMALS: regular rate RATE: regular rate Extremity: COMMON NORMALS: normal to inspection and full ROM Neuro: COMMON NORMALS: patient oriented x3, moves all extremities and no focal motor deficits Psych: COMMON NORMALS: mental status grossly normal, Normal thought process present and cooperative THOUGHT PROCESS: Normal thought process present Skin: COMMON NORMALS: no rashes or lesions noted and no wounds GENERAL SKIN EXAM: no rashes or lesions noted Procedures Laceration Laceration 1: Site: scalp Side (If applicable): right Size (cm): 6 Description: linear Depth: simple, single layer Local Anesthetic: lidocaine 1% Amount of anesthesia used (mL): 9 Pre-repair: wound explored, irrigated extensively and deep structures intact Skin layer closed with: other (staple) Number of sutures: 7 Course Vital Signs: Vital signs: Vital Signs Temperature 98.0 F 01/18/25 19:52 Pulse Rate 68 01/18/25 19:52 Respiratory Rate 16 01/18/25 19:52 Blood Pressure 191/116 01/18/25 19:52 Pulse Oximetry 95 01/18/25 19:52 MDM - Wound/Laceration Medical Decision Making Patient presents with head laceration he had no loss consciousness does not require head CT did repair the laceration with von he is have von removed in 7 to 10 days return if worsening he understands agrees plan Medical Records I reviewed the patient's medical records. No radiology studies performed this visit Discharge Plan Discharge Patient Disposition: Home Clinical Impression: Laceration Condition: Stable Prescriptions: No Action meloxicam 7.5 mg tablet 7.5 mg PO DAILY prednisone 20 mg tablet 20 mg PO DAILY Qty: 15 0RF Rx Instructions: 60mg for three days, 40mg for two days, 20mg for two days. methocarbamol 500 mg tablet 500 mg PO TID 14 Days Qty: 42 0RF prednisone 20 mg tablet 20 mg PO DAILY Qty: 15 0RF hydrocodone-acetaminophen 7.5-325 mg tablet 1 tab PO Q8H PRN (Reason: pain) 7 Days Qty: 20 0RF cyclobenzaprine 10 mg tablet 10 mg PO Q8H Qty: 20 0RF hydrocodone-acetaminophen 5-325 mg tablet 1 tab PO Q6H PRN (Reason: pain) Qty: 20 0RF diclofenac sodium 50 mg tablet,delayed release (DR/EC) 50 mg PO Q12H Qty: 20 0RF Miralax 17 gram/dose powder 17 g PO DAILY Qty: 510 0RF Rx Instructions: Take 1 scoop daily while taking pain medications. 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
[2025-01-18] MEDS: tetanus-dipt-pertussis 0.5 mL SDV IM (20:14)
[2025-01-18 20:19] VITALS: BP 174/101; PULSE 66; RESP 16; O2SAT 97
== END 2025-01-18 20:18 | disposition home or self-care (01) ==
PROVIDERS: Emergency Provider Emergency Medicine; PCP Electrodiagnostic Medicine
DX: S01.01XA Laceration without foreign body of scalp, initial encounter (principal); W22.8XXA Striking against or struck by other objects, initial encounter; Z23 Encounter for immunization
CPT/HCPCS: 12002; 90471; 90715; 99283

== ENCOUNTER 2025-02-21 20:15 | Emergency (ER) | payer OTHER, SELFPAY ==
[2025-02-21 20:24] VITALS: BP 139/86; PULSE 78; TEMP 36.3; O2SAT 96; BMI 29.7
--- NOTE | 2025-02-21 20:56 | W.ED.EXTPRO ---
HPI - Extremity Problem General: Chief complaint: Extremity Injury, Lower Stated complaint: Leg Injury L Time Seen by Provider: 02/21/25 20:56 History of Present Illness: 59-year-old male presents with pain and swelling discomfort of the left leg. Patient reports he bumped it a couple days ago but since then he has had significant increase swelling and pain and is concerned about a blood clot. He has posterior calf pain. Related Data Home Medications ?Medication ?Instructions ?Recorded ?Confirmed meloxicam 7.5 mg tablet 7.5 mg PO DAILY 01/02/23 07/22/24 Previous Rx's ?Medication ?Instructions ?Recorded cyclobenzaprine 10 mg tablet 10 mg PO Q8H #20 tabs 05/09/24 diclofenac sodium 50 mg 50 mg PO Q12H #20 tabs 05/09/24 tablet,delayed release hydrocodone 5 mg-acetaminophen 325 1 tab PO Q6H PRN pain #20 tabs 05/09/24 mg tablet polyethylene glycol 3350 17 17 g PO DAILY #510 grams 05/09/24 gram/dose oral powder (Miralax) methocarbamol 500 mg tablet 500 mg PO TID 14 days #42 tabs 07/06/24 prednisone 20 mg tablet 20 mg PO DAILY #15 tabs 07/06/24 hydrocodone 7.5 mg-acetaminophen 1 tab PO Q8H PRN pain 7 days #20 07/15/24 325 mg tablet tabs prednisone 20 mg tablet 20 mg PO DAILY pain #15 tabs 07/22/24 Allergies Allergy/AdvReac Type Severity Reaction Status Date / Time No Known Allergies Allergy Verified 02/21/25 20:31 Review of Systems Musc: Reports: extremity pain and extremity swelling [facility] ED PFSH: Medical History No pertinent family history Surgical History No pertinent past surgical history Social History Smoking and tobacco/nicotine status: never used tobacco/nicotine Physical Exam Const: COMMON NORMALS: no acute distress, patient oriented x3 and alert Cardio: COMMON NORMALS: regular rate and regular rhythm RATE: regular rate RHYTHM: regular rhythm GI: COMMON NORMALS: Soft to palpation and non-tender PALPATION: Yes Soft to palpation Extremity: NARRATIVE EXTREMITY EXAM: Swelling, warmth and posterior calf tenderness left lower leg Neuro: COMMON NORMALS: patient oriented x3 SENSORIUM/ORIENTATION: Yes alert Psych: COMMON NORMALS: mental status grossly normal, Normal thought process present and cooperative THOUGHT PROCESS: Normal thought process present Skin: NARRATIVE SKIN EXAM: Mild warmth, erythema and discoloration left lower leg Course Vital Signs: Vital signs: Vital Signs Temperature 97.4 F L 02/21/25 20:24 Pulse Rate 79 02/21/25 22:10 Respiratory Rate 18 02/21/25 22:10 Blood Pressure 131/75 02/21/25 22:10 Pulse Oximetry 93 02/21/25 22:10 Oxygen Delivery Me thod Room Air 02/21/25 22:10 MDM - Extremity (Nontraumatic) Medical Decision Making Patient's ultrasound shows no DVT. Patient does have some bruising and swelling consistent with hematoma of the lower leg. Discussed with him supportive care including J Carlos wrap, ice, topical Voltaren. Patient is stable and discharged home. Lab Data Radiology Impressions Venous Duplex 02/21/25 20:59 IMPRESSION: No evidence of deep vein thrombosis. All radiology interpretation(s) finalized by discharge Discharge Plan Discharge Patient Disposition: Home Clinical Impression: Hematoma of lower extremity, Contusion of left lower leg, initial encounter Condition: Stable Prescriptions: No Action meloxicam 7.5 mg tablet 7.5 mg PO DAILY prednisone 20 mg tablet 20 mg PO DAILY Qty: 15 0RF Rx Instructions: 60mg for three days, 40mg for two days, 20mg for two days. methocarbamol 500 mg tablet 500 mg PO TID 14 Days Qty: 42 0RF prednisone 20 mg tablet 20 mg PO DAILY Qty: 15 0RF hydrocodone-acetaminophen 7.5-325 mg tablet 1 tab PO Q8H PRN (Reason: pain) 7 Days Qty: 20 0RF cyclobenzaprine 10 mg tablet 10 mg PO Q8H Qty: 20 0RF hydrocodone-acetaminophen 5-325 mg tablet 1 tab PO Q6H PRN (Reason: pain) Qty: 20 0RF diclofenac sodium 50 mg tablet,delayed release (DR/EC) 50 mg PO Q12H Qty: 20 0RF Miralax 17 gram/dose powder 17 g PO DAILY Qty: 510 0RF Rx Instructions: Take 1 scoop daily while taking pain medications. Discharge Orders: Discharge ED (Routine); Ordered 02/21/25 Ordered By: Param Hines Referrals: Darin Guzman DO [Primary Care Provider, Family Practice] Discharge Diet: Usual diet Discharge Activity: Increase activity as tolerated Patient Instructions: Contusion in Adults (ED), Hematoma (ED), Opioid Safety, Pain Management Activity Restrictions/Additional Instructions: J Carlos wrap as needed for comfort. Please keep leg elevated when not ambulating. You may use ice for 10 to 15 minutes time 3-4 times daily. Topical Voltaren/diclofenac cream use as directed on package. Follow-up with your primary care provider if symptoms or not improving over the next 7 to 10 days. Activity as tolerated. 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
--- NOTE | 2025-02-21 20:59 | USR_ITS ---
PROCEDURE INFORMATION: Exam: US Duplex Left Lower Extremity Veins, Limited Exam date and time: 02/21/2025 9:26 PM Age: 59 years old Clinical indication: Injury or trauma; Fall; Blunt trauma (contusions or hematomas); Left; Lower extremity, lower leg level; Tibial artery; Injury date: 02/21/2025; Additional info: Swollen leg TECHNIQUE: Imaging protocol: Real-time duplex ultrasound of the left extremity with 2-D dixon scale, color Doppler flow and spectral waveform analysis including responses to compression and other maneuvers (when performed) with image documentation. Limited exam focused on the left lower extremity veins. COMPARISON: US soft tissue/extremity [id number] 04/11/2022 12:31 PM FINDINGS: Left deep veins: Unremarkable. The common femoral, femoral, proximal profunda femoral and popliteal veins are patent without thrombus. Normal Doppler waveforms. Normal compressibility and/or augmentation response. Superficial veins: Greater saphenous vein at the saphenofemoral junction is patent without thrombus. Soft tissues: Unremarkable. US/CV venous duplex [facility] [id number] IMPRESSION: No evidence of deep vein thrombosis.
[2025-02-21 22:10] VITALS: BP 131/75; PULSE 79; RESP 18; O2SAT 93
[2025-02-21 22:48] VITALS: BP 112/75; PULSE 82; RESP 16; O2SAT 93
== END 2025-02-21 22:48 | disposition home or self-care (01) ==
PROVIDERS: Emergency Provider Student in an Organized Health Care Education/Training Program; PCP Electrodiagnostic Medicine
DX: S80.12XA Contusion of left lower leg, initial encounter (principal); X58.XXXA Exposure to other specified factors, initial encounter
CPT/HCPCS: 93971; 99284